=== PATIENT | female | born 1950 | race Two or more races ===

== ENCOUNTER 2021-02-08 10:39 | Inpatient (IN) | payer OTHER ==
[~2021-02-08] VITALS: Ht 165.1 cm; Wt 96.1 kg
[~2021-02-08 10:39] MED LIST: BACL20TA PO; ENAL20TA8 PO; FURO40TA4 PO; LEVO150T10 PO; MELO1TAB56 PO; POTA10TA51 PO; SIMV10TA84 PO; TIZA4CAP PO
[2021-02-08] MEDS ORDERED: BUPIVACAINE 0.25% INJ 50ML VIAL ONE (10:58)
[2021-02-08] MEDS ORDERED: TRANEXAMIC ACID 20 ML ONE (10:58)
[2021-02-08] MEDS ORDERED: KETOROLAC TROMETH 30 MG/ML 1ML VIAL ONE (10:59)
[2021-02-08] MEDS ORDERED: VANCOMYCIN HCL 1000 MG VL ONE (11:00)
[2021-02-08] MEDS ORDERED: ceFAZolin 1GM/50ML 100 ML IV ONE (11:04)
[2021-02-08] MEDS ORDERED: fentaNYL CITRATE 5 ML ONE (11:07)
[2021-02-08] MEDS ORDERED: fentaNYL CITRATE 100 MCG/2 ML VL ONE ×2 (11:07→13:54)
[2021-02-08] MEDS ORDERED: ROCURONIUM 10MG/ML 10ML VIAL IV ONE (11:07)
[2021-02-08] MEDS ORDERED: HYDROmorphone HCL 2 MG/ML VL ONE ×2 (11:07→14:44)
[2021-02-08] MEDS ORDERED: ONDANSETRON HCL 4 MG/2 ML VIAL ONE (11:08)
[2021-02-08] MEDS ORDERED: NEOSTIGMINE 1 MG/ML INJ (10mg/10ML VIAL) ONE (11:08)
[2021-02-08] MEDS ORDERED: SODIUM CHLORIDE LOCK 10 ML ONE (11:08)
[2021-02-08] MEDS ORDERED: MIDAZOLAM HCL 1MG/1ML-2 ML VIAL ONE (11:08)
[2021-02-08] MEDS ORDERED: GLYCOPYRROLATE 0.2 MG/ML 1ML VIAL ONE (11:08)
[2021-02-08] MEDS ORDERED: MORPHINE SULFATE 4 MG/ML SYR/VIAL IV PRN (11:45)
[2021-02-08] MEDS ORDERED: fentaNYL CITRATE 100 MCG/2 ML VL IV PRN (11:45)
[2021-02-08] MEDS ORDERED: ONDANSETRON HCL 4 MG/2 ML VIAL IV PRN ×2 (11:45→14:30)
[2021-02-08] MEDS ORDERED: MORPHINE SULF(PF) 0.5MG/ML 10ML VIAL ONE (13:10)
[2021-02-08] MEDS ORDERED: BACITRACIN INJ 50000 UNIT VIAL ONE (13:59)
[2021-02-08] MEDS ORDERED: MORPHINE SULF INJ 2 MG/ML SYRINGE 1ML IV PRN (14:30)
[2021-02-08] MEDS: LACTATED RINGER'S 1,000 ML IV SCH (14:30)
[2021-02-08] MEDS ORDERED: HYDROcodone-ACET 5/325MG TAB PO PRN (14:30)
[2021-02-08] MEDS ORDERED: NITROGLYCERIN 0.4 MG SL TAB SL PRN (14:30)
[2021-02-08] MEDS ORDERED: ACETAMINOPHEN IV 100 ML IV ONE (14:38)
[2021-02-08] MEDS: HYDROmorphone HCL 2 MG/ML VL IV PRN ×2 (14:45→15:32)
[2021-02-08] MEDS ORDERED: ACETAMINOPHEN IV 1000 MG/100ML (10MG/ML) IV ONE (15:00)
[2021-02-08] MEDS: ceFAZolin 1GM/50ML 50 ML IV SCH ×2 (18:02→20:07)
[2021-02-08] MEDS: DOCUSATE SOD 100 MG CAP PO SCH (20:07)
[2021-02-08 21:33] VITALS: BP 115/66
[2021-02-09] MEDS: LACTATED RINGER'S 1,000 ML IV SCH ×2 (00:30→10:30)
[2021-02-09] MEDS: ceFAZolin 1GM/50ML 50 ML IV SCH (02:30)
[2021-02-09] MEDS: MORPHINE SULF INJ 2 MG/ML SYRINGE 1ML IV PRN ×2 (02:30→06:31)
[2021-02-09 05:30] VITALS: BP 132/69
[2021-02-09 06:05] LABS: Hematocrit 34.7 % (36.0-46.0)
[2021-02-09 06:22] LABS: Potassium 4.6 mmol/L (3.5-5.1)
[2021-02-09 06:35] LABS: Albumin 3.6 g/dL (3.4-5.0); BUN/Creatinine Ratio 21.2; Bilirubin, Total 1.1 mg/dL (0.2-1.0); Calcium 8.7 mg/dL (8.5-10.1); Total Protein 6.7 g/dL (6.4-8.2)
[2021-02-09 09:00] VITALS: BP 143/68
[2021-02-09] MEDS: DOCUSATE SOD 100 MG CAP PO SCH (09:22)
[2021-02-09] MEDS ORDERED: POTASSIUM CHL 20 Meq TABLET PO SCH (10:00)
[2021-02-09] MEDS ORDERED: ENALAPRIL MALEATE 10 MG TAB PO SCH (10:00)
[2021-02-09] MEDS ORDERED: BACLOFEN 10 MG TAB PO SCH (10:00)
[2021-02-09] MEDS ORDERED: ZOCOR 10 MG PO SCH (10:00)
[2021-02-09] MEDS ORDERED: TIZANIDINE HYDROCHLORIDE 4 MG PO SCH (10:00)
[2021-02-09] MEDS ORDERED: FUROSEMIDE 40 MG TAB PO SCH (10:00)
[2021-02-09 10:12] VITALS: BP 143/68
[2021-02-09 13:00] VITALS: BP 137/53
[2021-02-10] MEDS ORDERED: LEVOTHYROXINE SODIUM 100 MCG TAB PO SCH (07:00)
== END 2021-02-09 12:45 | disposition home or self-care (01) | DRG 483 ==
LOC: SUR 10:39 → OVERFLOW 14:29 → CENTRAL 15:55
PROVIDERS: ADMIT Orthopaedic Surgery Sports Medicine; ATTEND Orthopaedic Surgery Sports Medicine
PROC: 0RRK00Z Replacement of Left Shoulder Joint with Reverse Ball and Socket Synthetic Substitute, Open Approach (ICD-10-PCS; principal; 2021-02-08 12:00)
DX: M12.812 Other specific arthropathies, not elsewhere classified, left shoulder (principal); M75.122 Complete rotator cuff tear or rupture of left shoulder, not specified as traumatic; E03.9 Hypothyroidism, unspecified; E78.5 Hyperlipidemia, unspecified; G89.29 Other chronic pain; Z96.612 Presence of left artificial shoulder joint; M79.7 Fibromyalgia; I12.9 Hypertensive chronic kidney disease with stage 1 through stage 4 chronic kidney disease, or unspecified chronic kidney disease; N18.30 Chronic kidney disease, stage 3 unspecified; Z20.822 Contact with and (suspected) exposure to COVID-19
CPT/HCPCS: 36415; 73020; 80053; 85014; 85018; 86850; 86900; 86901; A4565; G0378; J0131; J0690; J1885; J2250; J2405; J3490

== ENCOUNTER 2021-09-08 06:14 | Inpatient (IN) | payer MEDICAID, OTHER ==
[~2021-09-08] VITALS: Ht 165.1 cm; Wt 86.1 kg
[~2021-09-08 06:14] MED LIST changes: +CHOL500020 PO; +GABA-339 PO; +HYDR-4798 PO; +OXYB10GE TD
[2021-09-08] MEDS ORDERED: ceFAZolin 1GM/50ML 100 ML IV ONE (06:33)
[2021-09-08] MEDS ORDERED: MIDAZOLAM HCL 2MG/2ML 2ml VIAL (1mg/ml) ONE (06:58)
[2021-09-08] MEDS ORDERED: ROCURONIUM 10MG/ML 10ML VIAL IV ONE (06:58)
[2021-09-08] MEDS ORDERED: fentaNYL CITRATE 100 MCG/2 ML VL ONE (06:58)
[2021-09-08] MEDS ORDERED: PROPOFOL 10 MG/ML 20 ML IV ONE (06:58)
[2021-09-08] MEDS ORDERED: fentaNYL CITRATE 5 ML ONE (06:58)
[2021-09-08] MEDS ORDERED: ONDANSETRON HCL 4 MG/2 ML VIAL ONE (06:58)
[2021-09-08] MEDS ORDERED: NEOSTIGMINE 1 MG/ML INJ (10mg/10ML VIAL) ONE (06:58)
[2021-09-08] MEDS ORDERED: TRANEXAMIC ACID 20 ML ONE (07:01)
[2021-09-08] MEDS ORDERED: VANCOMYCIN HCL 1000 MG VL ONE (07:13)
[2021-09-08] MEDS ORDERED: KETOROLAC TROMETH 30 MG/ML 1ML VIAL ONE (07:27)
[2021-09-08] MEDS ORDERED: BUPIVACAINE 0.25% INJ 50ML VIAL ONE ×2 (07:31→11:04)
[2021-09-08] MEDS ORDERED: METOCLOPRAMIDE HCL 5MG/ml INJ 2ml VIAL IV PRN (07:45)
[2021-09-08] MEDS ORDERED: HYDROmorphone HCL 2 MG/ML VL IV PRN ×2 (07:45→10:45)
[2021-09-08] MEDS ORDERED: MORPHINE SULFATE 4 MG/ML SYR/VIAL IV PRN (07:45)
[2021-09-08] MEDS ORDERED: EPINEPHrine HCL 1 MG/1 ML AMP ONE (08:08)
[2021-09-08] MEDS ORDERED: MORPHINE SULF PF 2 MG/2 ML SYRG ONE (08:19)
[2021-09-08] MEDS: HYDROmorphone HCL 2 MG/ML VL ONE ×3 (10:42→11:12)
[2021-09-08] MEDS ORDERED: D5W/LACTATED RINGERS 1,000 ML IV SCH (10:45)
[2021-09-08] MEDS ORDERED: oxyCODONE HCL 5MG TAB PO PRN ×2 (10:45)
[2021-09-08] MEDS ORDERED: LIDOCAINE 1% HCL (LOCAL ANESTH.) INJ 20ML MDV ONE (11:04)
[2021-09-08] MEDS ORDERED: ceFAZolin 2 GM in D5W 5% 100 ML IV SCH (14:00)
[2021-09-08] MEDS ORDERED: ONDANSETRON HCL 4 MG/2 ML VIAL IV PRN (15:15)
[2021-09-08] MEDS: ACETAMINOPHEN 325 MG TAB PO SCH ×3 (15:44→23:14)
[2021-09-08 16:13] VITALS: BP 151/80
[2021-09-08] MEDS: ceFAZolin 2 GM in D5W 5% 100 ML IV SCH ×2 (16:14→17:30)
[2021-09-08] MEDS: KETOROLAC TROMETH 30 MG/ML 1ML VIAL IV SCH ×3 (16:19→23:14)
[2021-09-08] MEDS: PREGABALIN 25 MG CAP PO SCH (21:01)
[2021-09-08] MEDS: GABAPENTIN 100 MG CAP PO SCH (21:01)
[2021-09-08 22:00] VITALS: BP 131/58
[2021-09-08] MEDS ORDERED: SENNA 8.6 MG TAB PO SCH (22:00)
[2021-09-08] MEDS ORDERED: ATORVASTATIN 20 MG TAB PO SCH (22:00)
[2021-09-09 05:00] VITALS: BP 122/59
[2021-09-09] MEDS: ACETAMINOPHEN 325 MG TAB PO SCH ×2 (06:04→12:31)
[2021-09-09] MEDS: KETOROLAC TROMETH 30 MG/ML 1ML VIAL IV SCH ×2 (06:04→12:31)
[2021-09-09] MEDS: GABAPENTIN 100 MG CAP PO SCH ×3 (06:04→14:47)
[2021-09-09 06:05] LABS: Basophils # (auto) 0 10 ^3/uL (0-0.2); Basophils % (auto) 0.3 % (0.0-2.0); Eosinophils # (auto) 0 10 ^3/uL (0-0.8); Eosinophils % (auto) 0.1 % (0.0-7.0); Hematocrit 31.9 % (36.0-46.0); Hemoglobin 10.8 g/dL (12.2-16.2); Lymphocytes # (auto) 1.4 10 ^3/uL (0.4-5.4); Lymphocytes % (auto) 15.5 % (10.0-50.0); Mean Corpuscular Hemoglobin 31.9 pg (28.0-32.0); Mean Corpuscular Hgb Conc. 33.8 g/dL (32.0-36.0); Mean Corpuscular Volume 94.3 fL (80.0-100.0); Monocytes # (auto) 0.9 10 ^3/uL (0-1.3); Monocytes % (auto) 9.8 % (0.0-12.0); Neutrophils # (auto) 6.5 10 ^3/uL (1.6-8.6); Neutrophils % (auto) 74.3 % (37.0-80.0); Red Blood Cells 3.38 10^6/uL (4.0-5.20); Red Cell Distribution Width 14.4 % (11.8-14.3); White Blood Cell 8.8 10^3/uL (4.4-10.8)
[2021-09-09 06:23] LABS: BUN/Creatinine Ratio 15.3; Potassium 4.7 mmol/L (3.5-5.1)
[2021-09-09] MEDS ORDERED: LEVOTHYROXINE SODIUM 100 MCG TAB PO SCH (07:00)
[2021-09-09 09:00] VITALS: BP 143/72
[2021-09-09] MEDS: PREGABALIN 25 MG CAP PO SCH (09:56)
[2021-09-09] MEDS ORDERED: FUROSEMIDE 40 MG TAB PO SCH (10:00)
[2021-09-09] MEDS ORDERED: POTASSIUM CHL 10 Meq TABLET PO SCH (10:00)
[2021-09-09] MEDS ORDERED: ENALAPRIL MALEATE 10 MG TAB PO SCH (10:00)
[2021-09-09] MEDS ORDERED: ASPirin 81 mg TAB PO SCH (10:00)
[2021-09-09 12:35] VITALS: BP 129/87
[2021-09-09 16:45] VITALS: BP 139/72
== END 2021-09-09 17:55 | disposition home health service (06) | DRG 470 ==
LOC: SUR 06:14 → OVERFLOW 10:35 → WEST WING 12:01
PROVIDERS: ADMIT Orthopaedic Surgery; ATTEND Orthopaedic Surgery
PROC: 8E0YXBZ Computer Assisted Procedure of Lower Extremity (ICD-10-PCS; 2021-09-08)
PROC: 0SRD069 Replacement of Left Knee Joint with Oxidized Zirconium on Polyethylene Synthetic Substitute, Cemented, Open Approach (ICD-10-PCS; principal; 2021-09-08 07:40)
DX: M17.12 Unilateral primary osteoarthritis, left knee (principal); D62 Acute posthemorrhagic anemia; I11.9 Hypertensive heart disease without heart failure; E03.9 Hypothyroidism, unspecified; E66.01 Morbid (severe) obesity due to excess calories; Z68.31 Body mass index [BMI] 31.0-31.9, adult; Z20.822 Contact with and (suspected) exposure to COVID-19
CPT/HCPCS: 36415; 73562; 80048; 85025; 86850; 86900; 86901; 97110; 97116; 97163; 97530; G0378; J0171; J0690; J1885; J2001; J2250; J2405; J2704; J3490; J7060

== ENCOUNTER 2021-10-08 11:01 | Emergency (ER) | payer OTHER ==
[~2021-10-08] VITALS: Ht 165.1 cm; Wt 86.2 kg
[~2021-10-08 11:01] MED LIST changes: -MELO1TAB56 PO
[2021-10-08 11:55] VITALS: BP 121/72
[2021-10-08] MEDS ORDERED: CEPH500T PO (12:18)
== END 2021-10-08 12:31 | disposition home or self-care (01) ==
LOC: ER 11:01
DX: S81.002D Unspecified open wound, left knee, subsequent encounter (principal); I10 Essential (primary) hypertension; E03.9 Hypothyroidism, unspecified; E78.5 Hyperlipidemia, unspecified; Z79.899 Other long term (current) drug therapy; X58.XXXD Exposure to other specified factors, subsequent encounter
CPT/HCPCS: 12001

== ENCOUNTER 2022-07-29 07:28 | Emergency (ER) | payer OTHER ==
[~2022-07-29] VITALS: Ht 165.1 cm; Wt 88.5 kg
[~2022-07-29 07:28] MED LIST changes: +CEPH500T PO
[2022-07-29] MEDS ORDERED: DexAMETHasone SOD PHOS 10MG/1ML VIAL INJ IV ONE (08:45)
[2022-07-29] MEDS ORDERED: SODIUM CHLORIDE 0.9% 1,000 ML IV ONE (08:45)
[2022-07-29 08:55] LABS: Basophils # (auto) 0.1 10 ^3/uL (0-0.2); Eosinophils # (auto) 0.1 10 ^3/uL (0-0.8); Eosinophils % (auto) 0.7 % (0.0-7.0); Hemoglobin 9.4 g/dL (12.2-16.2); Lymphocytes # (auto) 0.7 10 ^3/uL (0.4-5.4); Monocytes # (auto) 0.6 10 ^3/uL (0-1.3); Nucleated Red Blood Cells % 0.1 %
[2022-07-29 08:57] LABS: Basophils % (auto) 0.8 % (0.0-2.0); Hematocrit 27.6 % (36.0-46.0); Lymphocytes % (auto) 7.9 % (10.0-50.0); Mean Corpuscular Hemoglobin 31.1 pg (28.0-32.0); Mean Corpuscular Hgb Conc. 34.2 g/dL (32.0-36.0); Mean Corpuscular Volume 91.1 fL (80.0-100.0); Monocytes % (auto) 6.9 % (0.0-12.0); Neutrophils # (auto) 7.1 10 ^3/uL (1.6-8.6); Neutrophils % (auto) 83.7 % (37.0-80.0); Red Blood Cells 3.02 10^6/uL (4.0-5.20); Red Cell Distribution Width 14.2 % (11.8-14.3); White Blood Cell 8.4 10^3/uL (4.4-10.8)
[2022-07-29 09:10] LABS: Albumin 3.3 g/dL (3.4-5.0); Calcium 8.8 mg/dL (8.5-10.1); Magnesium 2.3 mg/dL (1.6-2.6); Potassium 3.5 mmol/L (3.5-5.1)
[2022-07-29 09:15] LABS: BUN/Creatinine Ratio 14.3; Bilirubin, Total 0.7 mg/dL (0.2-1.0); Total Protein 6.5 g/dL (6.4-8.2)
[2022-07-29] MEDS ORDERED: ONDANSETRON HCL 4 MG/2 ML VIAL IV ONE ×2 (09:45→15:30)
[2022-07-29] MEDS ORDERED: MORPHINE SULFATE INJ 2 MG/ml SYRG IV ONE ×2 (09:45→15:30)
[2022-07-29 11:41] LABS: Urine Bacteria FEW /hpf (None Seen); Urine Blood Negative /uL (Negative); Urine Specific Gravity 1.005 (1.001-1.035); Urine WBC 2 /hpf (0 - 5)
[2022-07-29 16:28] VITALS: BP 129/58
== END 2022-07-29 16:48 | disposition short-term general hospital (02) ==
LOC: EDBD 07:28 → ER 07:28
DX: E03.9 Hypothyroidism, unspecified (principal); I10 Essential (primary) hypertension; D64.9 Anemia, unspecified; E46 Unspecified protein-calorie malnutrition; E78.5 Hyperlipidemia, unspecified; Z90.710 Acquired absence of both cervix and uterus; Z79.899 Other long term (current) drug therapy
CPT/HCPCS: 36415; 72131; 80053; 81001; 83690; 83735; 84443; 85025; 93005; 96361; 96374; 96375; 96376; 99284; J1100; J2270; J2405; J7030

== ENCOUNTER 2022-12-08 15:38 | Emergency (ER) | payer OTHER ==
[~2022-12-08] VITALS: Ht 165.1 cm; Wt 6.4 kg
[2022-12-08] MEDS ORDERED: MORPHINE SULFATE INJ 2 MG/ml SYRG IM ONE (16:45)
[2022-12-08] MEDS ORDERED: hydrOXYzine HCL 25 MG/ML VL IM ONE (16:45)
[2022-12-08] MEDS ORDERED: PROMETHAZINE HCL 25 MG/ML 1ML IM ONE (21:00)
[2022-12-09] MEDS ORDERED: MORPHINE SULFATE 4 MG/ML SYR/VIAL IM ONE
[2022-12-09] MEDS ORDERED: ONDANSETRON HCL 4 MG/2 ML VIAL IM ONE
[2022-12-09 00:06] VITALS: BP 153/58
== END 2022-12-09 00:13 | disposition home or self-care (01) ==
LOC: ER 15:38
DX: M54.59 Other low back pain (principal); M54.31 Sciatica, right side; G89.29 Other chronic pain; M54.10 Radiculopathy, site unspecified; E78.5 Hyperlipidemia, unspecified; I10 Essential (primary) hypertension; Z79.899 Other long term (current) drug therapy; Z98.890 Other specified postprocedural states
CPT/HCPCS: 96372; 99283; J2270; J2405; J2550; J3410